=== PATIENT | female | born 1940 | race Caucasian/White ===

== ENCOUNTER 2017-09-20 10:07 | Outpatient (CLI) | END 2017-09-20 10:08 | disposition home or self-care (01) | LOC: LAB 10:07 | PROVIDERS: ATTEND Family Medicine | DX: R42 Dizziness and giddiness (principal) | CPT/HCPCS: 36415; 80053 ==

== ENCOUNTER 2018-03-11 18:17 | Outpatient (CLI) | END 2018-03-11 18:53 | disposition short-term general hospital (02) | LOC: AMBL 18:17 | PROVIDERS: ATTEND Internal Medicine | DX: S09.92XA Unspecified injury of nose, initial encounter (principal); R51 Headache; S51.812A Laceration without foreign body of left forearm, initial encounter; S51.811A Laceration without foreign body of right forearm, initial encounter; R68.89 Other general symptoms and signs; W18.11XA Fall from or off toilet without subsequent striking against object, initial encounter; R40.2411 Glasgow coma scale score 13-15, in the field [EMT or ambulance] ==

== ENCOUNTER 2018-03-17 17:56 | Inpatient (IN) | payer OTHER ==
[2018-03-17 18:29] VITALS: BMI 38.0
[2018-03-17] MEDS ORDERED: HUMALOG SUBCUT SCH (19:00)
[2018-03-17] MEDS ORDERED: FLONASE NAS PRN (19:04)
[2018-03-17] MEDS ORDERED: ZAROXOLYN PO PRN (19:04)
[2018-03-17] MEDS ORDERED: ZOFRAN TAB PO PRN (19:04)
[2018-03-17] MEDS ORDERED: NITROSTAT SL PRN (19:04)
[2018-03-17] MEDS ORDERED: NON-FORMULARY MEDICATION (Ranolazine [Ranexa] 1,000 MG) PO SCH (19:15)
[2018-03-17] MEDS ORDERED: TYLENOL PO PRN (19:15)
[2018-03-17] MEDS: NEURONTIN PO SCH ×2 (21:16→21:18)
[2018-03-17] MEDS: XANAX PO PRN (21:16)
[2018-03-17] MEDS: VITAMIN D PO SCH (21:17)
[2018-03-17] MEDS: HUMULIN N SUBCUT SCH (21:19)
[2018-03-18] MEDS: NORCO 5-325 PO PRN ×3 (00:23→22:57)
[2018-03-18] MEDS: BUMEX PO SCH (05:48)
[2018-03-18] MEDS: PROTONIX PO SCH ×2 (05:48→16:35)
[2018-03-18] MEDS: HUMALOG SUBCUT SCH ×3 (08:20→17:05)
[2018-03-18] MEDS ORDERED: HUMALOG SUBCUT SCH ×2 (08:30)
[2018-03-18] MEDS: PRAVACHOL PO SCH (08:38)
[2018-03-18] MEDS: PLAVIX PO SCH (08:38)
[2018-03-18] MEDS: ASPIRIN EC PO SCH (08:38)
[2018-03-18] MEDS: IMDUR PO SCH (08:39)
[2018-03-18] MEDS: VITAMIN D PO SCH ×2 (08:39→20:26)
[2018-03-18] MEDS: CALCIUM 500 + VIT D 200 MG TABLET PO SCH (08:39)
[2018-03-18] MEDS: RANEXA PO SCH ×2 (08:39→16:35)
[2018-03-18] MEDS: LOVENOX SUBCUT SCH (08:48)
[2018-03-18] MEDS: HUMULIN N SUBCUT SCH ×2 (08:55→16:42)
[2018-03-18] MEDS ORDERED: AVAPRO PO SCH (09:00)
[2018-03-18] MEDS ORDERED: NON-FORMULARY MEDICATION (Metoprolol Succinate [Toprol Xl] 100 MG) PO SCH (09:00)
[2018-03-18] MEDS ORDERED: IRBESARTAN 300 MG PO SCH (09:00)
[2018-03-18] MEDS ORDERED: NON-FORMULARY MEDICATION (Calcium Carbonate [Calcium] 600 MG) PO SCH (09:00)
[2018-03-18] MEDS: TOPROL XL PO SCH (11:21)
--- NOTE | 2018-03-18 15:18 | RS.PTINEVL ---
Subjective - Patient information Date of Evaluation: 03/18/18 Date of Arrival on Unit: 03/17/18 Admitted From:: Home Diagnosis: impaired mobility, s/p fall, hyponatremia Usual Living Arrangement: Alone Living Arrangement Comments: son and dtr in law live close by Home Environment: House, Ramp Medical History: Diabetes, CHF Medical History Comments:: GERD, AAA LATEX ALLERGY?: No Surgical History: Knee Replacement (bilateral), CABG Medications: see chart Subjective Information/ Patient Comments:: pt states that she fell at home trying to get into shower after not feeling well due to stomach issues. Fell braking nose and suffered skin tears to BUE - Level of function Prior to this admission, the patient could do the following:: Independent ADL's , Independent Ambulation Current Level of Function: Partially Dependent Current Equipment Used at Home: walker, cane, oxygen, glucometer Pain Assessement - Location BUE Effects of Pain: pain with pressure to skin tear areas. Interventions - Objective Patient Orientation: Person, Place, Time, Situation Current Interventions: IV's, Oxygen Observation: pt with edema BUE and BLE Range of Motion - ROM Right Upper Extremity AROM: WFL's Left Upper Extremity AROM: WFL's Right Lower Extremity AROM: WFL's Left Lower Extremity AROM: WFL's Muscle Strength - Muscle Strength Right Upper Extremity Strength: Mild Weakness (grossly 4/5) Left Upper Extremity Strength: Mild Weakness (grossly 4/5) Right Lower Extremity Strength: Mild Weakness (hip flex 4-/5, knee flex/ext 4/5 , ankle Df/PF 4/5) Left Lower Extremity Strength: Mild Weakness (hip flex 4-/5, knee flex/ext 4/5, ankle Df/PF 4/5) Sensation - Sensation Right Upper Extremity Sensation: Intact/Normal Left Upper Extremity Sensation: Intact/Normal Right Lower Extremity Sensation: Intact/Normal Left Lower Extremity Sensation: Intact/Normal Balance - Sitting Balance and Reactions Static Sitting Balance: Good Dynamic Sitting Balance: Fair Sitting Equilibrium Reactions: Delayed Left, Delayed Right Sitting Protective Reactions: Delayed Left, Delayed Right - Standing Balance and Reactions Static Standing Balance: Fair Dynamic Standing Balance: Poor Standing Equilibrium Reactions: Delayed Left, Delayed Right Standing Protective Reactions: Delayed Left, Delayed Right - Comments Balance Assessment Comments: pt with 1 episode of LOB required CGA to maintain balance Functional Mobility - Bed Mobility Comments:: pt seen sitting up in chair - Transfers Sit to Stand: Min Assist, 1 person assist Stand to Sit: CGA, 1 person assist - Safety Awareness Safety Awareness: Fair JAX INDEX SCORE: 55 Ambulation - Ambulation Assistive Device Used: Rolling Walker Orthotic/Prosthetic Device: No Distance: 75ft Assistance needed with Ambulation: CGA, 1 person assist, 2 person assist Quality of Ambulation: pt amb with CGA x 1 +1 for O2 Gait Deviations: Forward posture, Short stride, Deviates from path Ambulation Comments: pt amb with decreased step length, flexed posture, and occasionally deviates from path. Factors Affecting Ambulation: Decreased Balance, Breathing/O2 Saturation, Weakness, Decreased Safety, Limited Endurance Treatment time - Units charged Gait trainin - Time with patient Length of Evaluation: 18 Total treatment time: 29 Patient Education - Education Patient Education: Activity Modification, Education of Plan of Care Teaching Recipient: Patient Teaching Methods: Discussion (discussion regarding safety with transfers and gait.) Assessment - Assessment Problem List:: Decreased level of function, Requires training/education, Decreased safety/Risk of falls, Weakness Rehab Potential: Good Further Therapy Indicated?: Yes Candidate for Swing Bed for Therapy Services?: pt is currently in swing bed Evaluation Complexity: HISTORY: Medium (DM, CHF, falls, OA), EXAM OF BODY SYSTEMS: Medium (balance, posture, gait, transfers, SOA), CLINICAL PRESENTATION : Medium (evolving), CLINICAL DECISION MAKING: Medium Short Term Goals GOAL #1: pt demonstrate independence rolling and scooting up in bed Goal to be met by: 03/22/18 GOAL #2: Transfer sup to/from sit CGA sit to/from stand CGA to SBA Goal to be met by: 03/22/18 GOAL #3: pt amb with rwx 100ft with CGA with improved posture, and step length Goal to be met by: 03/22/18 GOAL #4: Improved BLE strength 4 to 4+/5 Goal to be met by: 03/22/18 Senior Ui Developer Goals GOAL #1: pt transfers sup to/from sit to/from stand independently Goal to be met by: 03/25/18 GOAL #2: pt amb with rwx functional household distances with SBA with no LOB Goal to be met by: 03/25/18 GOAL #3: able to perform 5 mins of standing activity without seated rest period Goal to be met by: 08/10/18 Plan Plan of Care: Therapeutic EX, Therapeutic Activity Other:: gait training Frequency of Treatment: 1-2 X day, as tolerated Duration of Treatment: 1 Week Anticipated Discharge Destination: Home Treatment Diagnosis (ICD 10 Codes): R26.81 balance impaired. z91.81 risk of falls. R26.2 difficulty walking. M62.81 general weakness Has the Physician been added for Co-signature?: Yes
[2018-03-18] MEDS: XANAX PO PRN (15:19)
[2018-03-18] MEDS: NEURONTIN PO SCH ×2 (20:25→20:26)
[2018-03-19] MEDS: BUMEX PO SCH (05:46)
[2018-03-19] MEDS: PROTONIX PO SCH ×2 (05:46→16:54)
[2018-03-19] MEDS: IMDUR PO SCH (08:39)
[2018-03-19] MEDS: PLAVIX PO SCH (08:40)
[2018-03-19] MEDS: RANEXA PO SCH ×2 (08:40→16:54)
[2018-03-19] MEDS: VITAMIN D PO SCH ×2 (08:40→20:59)
[2018-03-19] MEDS: TOPROL XL PO SCH (08:40)
[2018-03-19] MEDS: CALCIUM 500 + VIT D 200 MG TABLET PO SCH (08:40)
[2018-03-19] MEDS: PRAVACHOL PO SCH (08:41)
[2018-03-19] MEDS: ASPIRIN EC PO SCH (08:41)
[2018-03-19] MEDS: LOVENOX SUBCUT SCH (08:43)
[2018-03-19] MEDS: HUMULIN N SUBCUT SCH ×2 (08:45→16:54)
[2018-03-19] MEDS: HUMALOG SUBCUT SCH ×3 (08:47→17:31)
[2018-03-19] MEDS: XANAX PO PRN (15:16)
[2018-03-19] MEDS: NEURONTIN PO SCH ×2 (18:33→20:59)
[2018-03-19] MEDS: AVAPRO PO SCH (20:58)
[2018-03-19] MEDS: NORCO 5-325 PO PRN (22:34)
[2018-03-20] MEDS: BUMEX PO SCH (05:38)
[2018-03-20] MEDS: PROTONIX PO SCH ×2 (05:38→17:02)
[2018-03-20] MEDS: RANEXA PO SCH ×2 (08:38→17:01)
[2018-03-20] MEDS: VITAMIN D PO SCH ×2 (08:38→21:57)
[2018-03-20] MEDS: TOPROL XL PO SCH (08:38)
[2018-03-20] MEDS: CALCIUM 500 + VIT D 200 MG TABLET PO SCH (08:38)
[2018-03-20] MEDS: ASPIRIN EC PO SCH (08:38)
[2018-03-20] MEDS: IMDUR PO SCH (08:38)
[2018-03-20] MEDS: PRAVACHOL PO SCH (08:38)
[2018-03-20] MEDS: PLAVIX PO SCH (08:38)
[2018-03-20] MEDS: LOVENOX SUBCUT SCH (08:39)
[2018-03-20] MEDS: HUMALOG SUBCUT SCH ×3 (08:39→17:36)
[2018-03-20] MEDS: HUMULIN N SUBCUT SCH ×2 (08:42→17:03)
[2018-03-20] MEDS: NEURONTIN PO SCH ×2 (18:30→21:57)
[2018-03-20] MEDS: AVAPRO PO SCH (21:56)
[2018-03-20] MEDS: NORCO 5-325 PO PRN (23:42)
[2018-03-21] MEDS: BUMEX PO SCH (06:03)
[2018-03-21] MEDS: PROTONIX PO SCH ×2 (06:03→18:15)
[2018-03-21] MEDS: ASPIRIN EC PO SCH (09:09)
[2018-03-21] MEDS: IMDUR PO SCH (09:09)
[2018-03-21] MEDS: VITAMIN D PO SCH ×2 (09:10→20:57)
[2018-03-21] MEDS: RANEXA PO SCH ×2 (09:10→18:15)
[2018-03-21] MEDS: PLAVIX PO SCH (09:10)
[2018-03-21] MEDS: CALCIUM 500 + VIT D 200 MG TABLET PO SCH (09:10)
[2018-03-21] MEDS: PRAVACHOL PO SCH (09:10)
[2018-03-21] MEDS: LOVENOX SUBCUT SCH (09:11)
[2018-03-21] MEDS: TOPROL XL PO SCH (09:11)
[2018-03-21] MEDS: HUMULIN N SUBCUT SCH ×2 (09:13→18:15)
[2018-03-21] MEDS: HUMALOG SUBCUT SCH ×3 (09:14→18:17)
--- NOTE | 2018-03-21 10:48 | RS.SLPCNOT ---
Speech Case Note Date of Note: 03/21/18 Title: Speech Consult Note: The MARKETING PRODUCTION SPECIALIST discussed the patient's case with the senior case manager and nursing. Both reported no concerns for speech therapy, however to speak with the patient. The MARKETING PRODUCTION SPECIALIST entered the room and the pt was sitting up right in the chair waiting for PT to arrive. She was pleased to speak with the MARKETING PRODUCTION SPECIALIST due to her concerns with her esophagus. The pt reported she had a hx of a narrow esophagus with GERD. She had her esophagus stretched 1x and this relieved her swallowing difficulty and GERD symptoms. However, she stated, "recently i have been having some trouble with too soft or too hard food. I call it getting hung." The MARKETING PRODUCTION SPECIALIST educated the patient on strategies and exercises that could be completed to address her difficulty. However, the pt stated, " I want to focus on getting home first. Then maybe in a month or so I can get outpatient speech therapy." The MARKETING PRODUCTION SPECIALIST provided continued education on swallow anatomy and physiology and provided strategies. The pt agreed to no speech therapy during her hospital stay.
[2018-03-21] MEDS: NEURONTIN PO SCH ×2 (18:15→20:57)
[2018-03-21] MEDS: XANAX PO PRN (18:15)
[2018-03-21] MEDS: AVAPRO PO SCH (20:57)
[2018-03-21] MEDS: NORCO 5-325 PO PRN (23:58)
[2018-03-22] MEDS: PROTONIX PO SCH ×2 (05:44→17:28)
[2018-03-22] MEDS: BUMEX PO SCH (05:44)
[2018-03-22] MEDS: IMDUR PO SCH (09:45)
[2018-03-22] MEDS: CALCIUM 500 + VIT D 200 MG TABLET PO SCH (09:46)
[2018-03-22] MEDS: PLAVIX PO SCH (09:46)
[2018-03-22] MEDS: PRAVACHOL PO SCH (09:46)
[2018-03-22] MEDS: ASPIRIN EC PO SCH (09:46)
[2018-03-22] MEDS: RANEXA PO SCH ×2 (09:46→17:28)
[2018-03-22] MEDS: VITAMIN D PO SCH ×2 (09:46→20:52)
[2018-03-22] MEDS: HUMULIN N SUBCUT SCH ×2 (09:50→17:28)
[2018-03-22] MEDS: LOVENOX SUBCUT SCH (09:50)
[2018-03-22] MEDS: HUMALOG SUBCUT SCH ×3 (09:51→17:28)
[2018-03-22] MEDS: TOPROL XL PO SCH (10:12)
--- NOTE | 2018-03-22 12:12 | DI ---
EXAM: Right hand three-view HISTORY: Wound right hand with swelling COMPARISON: None FINDINGS: No fracture or dislocation. No cortical destruction identified to suggest osteomyelitis. Mild to moderate scattered osteoarthritic change throughout the hand. Soft tissue swelling about th e first digit. Atherosclerotic vascular calcification. IMPERSSION: 1. No fracture or dislocation. No findings to suggest osteomyelitis. 2. Soft tissue swelling first digit. 3. Osteoarthritis
[2018-03-22] MEDS: CLEOCIN PO SCH ×3 (12:40→20:52)
[2018-03-22] MEDS: NEURONTIN PO SCH ×2 (20:52)
[2018-03-22] MEDS: XANAX PO PRN (20:52)
[2018-03-22] MEDS: AVAPRO PO SCH (20:53)
[2018-03-22] MEDS: NORCO 5-325 PO PRN (22:39)
[2018-03-23] MEDS: CLEOCIN PO SCH ×3 (05:34→20:52)
[2018-03-23] MEDS: PROTONIX PO SCH ×2 (05:34→17:12)
[2018-03-23] MEDS: BUMEX PO SCH (05:34)
[2018-03-23] MEDS: CALCIUM 500 + VIT D 200 MG TABLET PO SCH (09:14)
[2018-03-23] MEDS: PRAVACHOL PO SCH (09:14)
[2018-03-23] MEDS: VITAMIN D PO SCH ×2 (09:14→21:02)
[2018-03-23] MEDS: ASPIRIN EC PO SCH (09:14)
[2018-03-23] MEDS: TOPROL XL PO SCH (09:15)
[2018-03-23] MEDS: RANEXA PO SCH ×2 (09:15→17:12)
[2018-03-23] MEDS: IMDUR PO SCH (09:15)
[2018-03-23] MEDS: PLAVIX PO SCH (09:15)
[2018-03-23] MEDS: HUMULIN N SUBCUT SCH ×2 (09:15→17:13)
[2018-03-23] MEDS: HUMALOG SUBCUT SCH ×3 (09:16→17:14)
[2018-03-23] MEDS: LOVENOX SUBCUT SCH (09:16)
[2018-03-23] MEDS: XANAX PO PRN ×2 (09:52→21:08)
[2018-03-23] MEDS ORDERED: CITRATE OF MAGNESIA PO STA (13:12)
[2018-03-23] MEDS ORDERED: DULCOLAX RC STA (13:12)
[2018-03-23] MEDS: NEURONTIN PO SCH ×2 (18:28→20:52)
[2018-03-23] MEDS: AVAPRO PO SCH (20:53)
[2018-03-23] MEDS ORDERED: VITAMIN D ONE (20:58)
[2018-03-24] MEDS: NORCO 5-325 PO PRN (00:11)
[2018-03-24] MEDS: PROTONIX PO SCH ×2 (05:49→17:10)
[2018-03-24] MEDS: CLEOCIN PO SCH ×2 (06:18→12:47)
[2018-03-24] MEDS: PRAVACHOL PO SCH (09:12)
[2018-03-24] MEDS: IMDUR PO SCH (09:12)
[2018-03-24] MEDS: BUMEX PO SCH ×2 (09:12→09:41)
[2018-03-24] MEDS: ASPIRIN EC PO SCH (09:12)
[2018-03-24] MEDS: PLAVIX PO SCH (09:12)
[2018-03-24] MEDS: TOPROL XL PO SCH (09:12)
[2018-03-24] MEDS: RANEXA PO SCH ×2 (09:12→17:10)
[2018-03-24] MEDS: VITAMIN D PO SCH (09:13)
[2018-03-24] MEDS: HUMULIN N SUBCUT SCH ×2 (09:13→17:11)
[2018-03-24] MEDS: LOVENOX SUBCUT SCH (09:13)
[2018-03-24] MEDS: HUMALOG SUBCUT SCH ×3 (09:14→17:11)
[2018-03-24] MEDS: CALCIUM 500 + VIT D 200 MG TABLET PO SCH (09:14)
--- NOTE | 2018-03-24 13:41 | RS.OTINEVL ---
Subjective - Patient information Date of Evaluation: 03/24/18 Date of Arrival on Unit: 03/16/18 Admitted From:: Facility Transfer Usual Living Arrangement: Alone Living Arrangement Comments: Pt lives at home alone. Pt reports she has help from her son and [id number]. Pt has a cat and was independent with dressing , bathing, showering, and has a ramp to enter her home. Pt used a RW at home before her fall. Pt was completing most of her house work herself. Home Environment: House, Rail, Ramp Medical History Comments:: Pt is upset because she has staph in her hand from the skin tear. Pt fell and has skin tears and a broken nose. Pt has difficulty standing and is now wearing oxygen during the day. AAA. CABG, hysterectomy, former smoker, DMII, LATEX ALLERGY?: No - Level of function Prior to this admission, the patient could do the following:: Independent ADL's , Independent Ambulation Current Equipment Used at Home: walker, cane, oxygen, glucometer Pain Assessment - Pain Side: right Pain Location Body Site: Hand Pain Aggravating Factors: ADL's Pain Alleviating Factors: Position Change (Pt has RUE elevated due to pain and edema of the Right hand.) Functional Mobility - Bed Mobility Rolling R/L: Supervision Scooting: Supervision Supine to Sit: Supervision Sit to Supine: Supervision - Transfers Stand to Sit: Min Assist, 1 person assist Stand Pivot Transfers: Min Assist, 1 person assist - Ambulation Assistive Device Used: Rolling Walker Assistance needed with Ambulation: Min Assist, 1 person assist - Safety Awareness Safety Awareness: Fair JAX INDEX SCORE: 65 Additional Treatment Performed - Additional units charged ADL: 15 - Time with patient Length of Evaluation: 17 Total treatment time: 32 Activities Do you enjoy playing games?: Yes Would you be interested in leaving your room for activities?: Yes Patient Interests:: Watching Television, Visiting/Socializing Patient Education Patient Education: Education of diagnosis, Home Exercise Program, Home Safety, Education of Plan of Care Teaching Recipient: Patient Teaching Methods: Discussion Assessment Problem List:: Decreased level of function, Requires training/education, Decreased safety/Risk of falls, Weakness Rehab Potential: Good Further Therapy Indicated?: Yes Candidate for Swing Bed for Therapy Services?: yes Evaluation Complexity: HISTORY: Medium, EXAM OF BODY SYSTEMS: Medium, CLINICAL DECISION MAKING: Medium Short Term Goals - Goals GOAL 1: Pt to tolerate 15 minutes of dyn. std. balance ADLS. Goal to be met by: 03/29/18 GOAL 2: Pt to increase functional mobility to CGA for self care. Goal to be met by: 03/29/18 GOAL 3: Pt to increase activity tolerance to 12 minutes. Goal to be met by: 03/29/18 Technical Support Representative Goals GOAL 1: Pt to tolerate 20 minutes of dyn. std. balance ADLS. Goal to be met by: 04/01/18 GOAL 2: Pt to increase functional mobility to Mod-I for self care. Goal to be met by: 04/01/18 GOAL 3: Pt to increase activity tolerance to 15 minutes. Goal to be met by: 04/01/18 Plan Plan of Care: Therapeutic EX, Neuromuscular Re-Educ, Therapeutic Activity, Self- Care/Home Management Frequency of Treatment: 1-2 X day, as tolerated Duration of Treatment: 2 Weeks Anticipated Discharge Destination: Home Treatment Diagnosis (ICD 10 Codes): M62.81 muscle weakness, Z74.0 Reduced mobility, Z74.1 need for assistance for personal care. Has the Physician been added for Co-signature?: Yes
[2018-03-24] MEDS: DOXYCYCLINE HYCLATE PO SCH (15:42)
[2018-03-24] MEDS: XANAX PO PRN (15:56)
[2018-03-24] MEDS: NEURONTIN PO SCH (18:46)
[2018-03-24] MEDS ORDERED: BUMEX ONE ×2 (22:00→23:19)
[2018-03-24] MEDS ORDERED: XANAX ONE (23:18)
[2018-03-25] MEDS: AVAPRO PO SCH ×2 (05:26→20:25)
[2018-03-25] MEDS: DOXYCYCLINE HYCLATE PO SCH ×3 (05:26→20:25)
[2018-03-25] MEDS: NEURONTIN PO SCH ×3 (05:26→20:25)
[2018-03-25] MEDS: VITAMIN D PO SCH ×3 (05:27→20:25)
[2018-03-25] MEDS: VITAMIN C PO SCH ×3 (05:27→20:25)
[2018-03-25] MEDS: PROTONIX PO SCH ×2 (05:40→17:22)
[2018-03-25] MEDS: BUMEX PO SCH (05:40)
--- NOTE | 2018-03-25 08:57 | DI ---
EXAM: Single view of the chest. History: Short of breath Findings: Cardiomegaly. Atherosclerotic vascular calcifications. Sternotomy wires. Artificial hea rt valve. Pulmonary edema and small bilateral pleural effusions. No pneumothorax. No acute osseous abnormalities. Impression: Cardiomegaly with pulmonary edema and small bilateral pleural effusions.
[2018-03-25] MEDS: LOVENOX SUBCUT SCH (09:13)
[2018-03-25] MEDS: HUMALOG SUBCUT SCH ×3 (09:15→17:23)
[2018-03-25] MEDS: HUMULIN N SUBCUT SCH ×2 (09:15→17:22)
[2018-03-25] MEDS: TOPROL XL PO SCH (09:16)
[2018-03-25] MEDS: PRAVACHOL PO SCH (09:16)
[2018-03-25] MEDS: ASPIRIN EC PO SCH (09:17)
[2018-03-25] MEDS: PLAVIX PO SCH (09:17)
[2018-03-25] MEDS: CALCIUM 500 + VIT D 200 MG TABLET PO SCH (09:17)
[2018-03-25] MEDS: IMDUR PO SCH (09:17)
[2018-03-25] MEDS: RANEXA PO SCH ×2 (09:18→17:22)
[2018-03-25] MEDS ORDERED: BUMEX IVP STA (10:25)
[2018-03-25] MEDS ORDERED: SOLU-CORTEF 100 MG IVP STA (10:26)
[2018-03-25] MEDS: XANAX PO PRN ×2 (13:00→19:28)
--- NOTE | 2018-03-25 14:59 | ECHO2D ---
Date of Exam: 03/25/18 Ordering Physician: DR. TAYLOR DELGADO Room #: [id number] Reason for Echo: CHF, CABG M-Mode Normal Adult Results LV Dimensions Normal Adult Results AoV Opening excursions >1.6 >1.6 LVEDD-base- 3.5-5.8 6.2 Ao root dimensions 2.0-3.7 3.0 LVESD-base- 3.1-4.6 L. Atrium dimensions 1.9-3.8 4.6 Post. Wall thickness 0.8-1.1 1.1 IV septum (thickness) 0.7-1.2 1.1 Post. Wall excursion 0.72-1.3 0.3 Septal motion 0.3 Systolic motion R. Ventricular cavity 1.5-2.0 3.0 LVEF 60% 22% Paradoxical septal wall motion NORMAL 2-D : HYPOKINETIC LEFT VENTRICLE, ENLARGED LEFT ATRIAL, RIGHT VENTRICLE AND LEFT VENTRICLE CAVITIES, NO EFFUSION, NO THROMBUS, NORMAL VALVES M-MODE: MV: NORMAL AV: NORMAL TV: NORMAL PV: CHAMBER SIZE: ENLARGED LEFT ATRIAL, LEFT VENTRICLE AND RIGHT VENTRICLE CAVITIES WALL MOTION: HYPOKINETIC LEFT VENTRICLE PERICARDIUM: NORMAL INTERPRETATION: 1. ENLARGED RIGHT VENTRICLE, LEFT ATRIAL AND LEFT VENTRICLE CAVITIES 2. SEVERE HYPOKINESIA OF LEFT VENTRICLE WITH EJECTION FRACTION 22% 3. NORMAL VALVES BY "M" MODE AND 2 "D" ECHO SEVERE DILATED CARDIOMYOPATHY MTDD
[2018-03-25] MEDS: MULTIVITAMIN TABLET PO SCH (17:20)
[2018-03-25] MEDS: NORCO 5-325 PO PRN (19:28)
[2018-03-26] MEDS: NORCO 5-325 PO PRN ×2 (01:38→20:33)
[2018-03-26] MEDS: BUMEX PO SCH (05:31)
[2018-03-26] MEDS: PROTONIX PO SCH ×2 (05:32→16:34)
[2018-03-26] MEDS: DOXYCYCLINE HYCLATE PO SCH ×2 (09:13→20:33)
[2018-03-26] MEDS: CALCIUM 500 + VIT D 200 MG TABLET PO SCH (09:13)
[2018-03-26] MEDS: MULTIVITAMIN TABLET PO SCH (09:13)
[2018-03-26] MEDS: TOPROL XL PO SCH (09:13)
[2018-03-26] MEDS: PRAVACHOL PO SCH (09:13)
[2018-03-26] MEDS: ASPIRIN EC PO SCH (09:13)
[2018-03-26] MEDS: PLAVIX PO SCH (09:14)
[2018-03-26] MEDS: VITAMIN D PO SCH ×2 (09:14→20:35)
[2018-03-26] MEDS: RANEXA PO SCH ×2 (09:14→16:34)
[2018-03-26] MEDS: VITAMIN C PO SCH ×2 (09:14→20:33)
[2018-03-26] MEDS: IMDUR PO SCH (09:14)
[2018-03-26] MEDS: LOVENOX SUBCUT SCH (09:15)
[2018-03-26] MEDS ORDERED: BUMEX IVP STA (09:27)
[2018-03-26] MEDS: HUMULIN N SUBCUT SCH ×2 (09:35→17:42)
[2018-03-26] MEDS: HUMALOG SUBCUT SCH ×3 (12:05→16:44)
[2018-03-26] MEDS: XANAX PO PRN (16:34)
[2018-03-26] MEDS: NEURONTIN PO SCH ×2 (18:27→20:33)
[2018-03-26] MEDS: AVAPRO PO SCH (20:33)
[2018-03-27] MEDS: XANAX PO PRN ×3 (00:19→21:16)
[2018-03-27] MEDS ORDERED: BUMEX IVP STA ×2 (04:37→04:42)
[2018-03-27] MEDS ORDERED: BUMEX ONE (04:40)
[2018-03-27] MEDS: BUMEX PO SCH (06:04)
[2018-03-27] MEDS: PROTONIX PO SCH ×2 (06:05→17:05)
[2018-03-27] MEDS: TOPROL XL PO SCH (09:24)
[2018-03-27] MEDS: MULTIVITAMIN TABLET PO SCH (09:24)
[2018-03-27] MEDS: IMDUR PO SCH (09:24)
[2018-03-27] MEDS: VITAMIN D PO SCH ×2 (09:25→20:25)
[2018-03-27] MEDS: RANEXA PO SCH ×2 (09:25→17:05)
[2018-03-27] MEDS: ASPIRIN EC PO SCH (09:25)
[2018-03-27] MEDS: DOXYCYCLINE HYCLATE PO SCH ×2 (09:25→20:25)
[2018-03-27] MEDS: PLAVIX PO SCH (09:25)
[2018-03-27] MEDS: PRAVACHOL PO SCH (09:25)
[2018-03-27] MEDS: VITAMIN C PO SCH ×2 (09:25→20:25)
[2018-03-27] MEDS: CALCIUM 500 + VIT D 200 MG TABLET PO SCH (09:26)
[2018-03-27] MEDS: HUMULIN N SUBCUT SCH ×2 (09:26→17:04)
[2018-03-27] MEDS: LOVENOX SUBCUT SCH (09:27)
[2018-03-27] MEDS: HUMALOG SUBCUT SCH ×3 (09:30→16:34)
[2018-03-27] MEDS ORDERED: SOLU-CORTEF 100 MG ONE (13:19)
[2018-03-27] MEDS: NORCO 5-325 PO PRN ×2 (13:28→21:16)
[2018-03-27] MEDS ORDERED: SOLU-CORTEF 100 MG 100 MG in SODIUM CHLORIDE 100 ML IV SCH (13:30)
[2018-03-27] MEDS: NEURONTIN PO SCH ×2 (18:44→20:25)
[2018-03-27] MEDS: AVAPRO PO SCH (20:27)
[2018-03-27] MEDS ORDERED: HUMULIN R SUBCUT ONE (22:00)
[2018-03-28] MEDS: PROTONIX PO SCH ×2 (05:53→17:05)
[2018-03-28] MEDS: BUMEX PO SCH (05:53)
[2018-03-28] MEDS: HUMULIN N SUBCUT SCH ×2 (08:47→17:08)
[2018-03-28] MEDS: LOVENOX SUBCUT SCH (08:47)
[2018-03-28] MEDS: HUMALOG SUBCUT SCH ×3 (08:48→17:07)
[2018-03-28] MEDS: PLAVIX PO SCH (08:48)
[2018-03-28] MEDS: RANEXA PO SCH ×2 (08:48→17:05)
[2018-03-28] MEDS: DOXYCYCLINE HYCLATE PO SCH ×2 (08:49→20:14)
[2018-03-28] MEDS: MULTIVITAMIN TABLET PO SCH (08:49)
[2018-03-28] MEDS: VITAMIN C PO SCH ×2 (08:49→20:14)
[2018-03-28] MEDS: CALCIUM 500 + VIT D 200 MG TABLET PO SCH (08:49)
[2018-03-28] MEDS: ASPIRIN EC PO SCH (08:49)
[2018-03-28] MEDS: PRAVACHOL PO SCH (08:49)
[2018-03-28] MEDS: IMDUR PO SCH (08:50)
[2018-03-28] MEDS: SOLU-CORTEF 100 MG IVP SCH (08:50)
[2018-03-28] MEDS: VITAMIN D PO SCH ×2 (08:50→20:13)
[2018-03-28] MEDS: TOPROL XL PO SCH (08:50)
--- NOTE | 2018-03-28 09:46 | CONS ---
DATE OF CONSULTATION: 03/25/18 REASON FOR CONSULTATION: Respiratory distress. HISTORY OF PRESENT ILLNESS: 77-year-old white female was hospitalized in swing bed for the past couple of weeks. Either early this morning or last night the patient's condition worsened and she went into what looks like pulmonary edema. The patient was given Lasix. Her condition improved to some extent but she is still short of breath on minimal exertion with mild expiratory wheeze. The ABG done this morning on 3L, p02 71, pc02 32, pH 7.49 with 96% saturation. The patient has multiple medical problems. Her main problem is ischemic cardiomyopathy, severe coronary artery disease, end-stage. She is on multiple medications. REVIEW OF SYSTEMS: CONSTITUTIONAL: No night sweats. No fatigue, malaise, lethargy. No fever or chills. HEENT: Eyes: No visual changes. No eye pain. No eye discharge. ENT: No sinus drainage. No epistaxis. No sinus pain. No sore throat. No odynophagia. No ear pain. No congestion. RESPIRATORY: No cough, no congestion. No hemoptysis. No shortness of breath. CARDIOVASCULAR: No angina symptoms. No CHF symptoms. No atypical chest pain for CAD. No palpitations. No orthopnea. GASTROINTESTINAL: No abdominal pain. No nausea or vomiting. No diarrhea or constipation. No hematemesis. No hematochezia. GENITOURINARY: No urgency. No frequency. No dysuria. No hematuria. No obstructive symptoms. No discharge. No pain. No significant abnormal bleeding. MUSCULOSKELETAL: No musculoskeletal pain. No joint swelling. NEUROLOGICAL: No headache. No neck pain. No syncope. No seizures. No dizziness. PSYCHIATRIC: Not anxious. No depression. No suicidal thoughts. No homicidal thoughts. SKIN: No rash. No lesions. No wounds. ENDOCRINE: No unexplained weight loss. No weight gain. HEMATOLOGIC/LYMPHATIC: No anemia. No purpura. No petechiae. No prolonged or excessive bleeding. No palpable lymph nodes. MEDICATIONS: Xanax Aspirin Beclomethasone inhaler Bumex Clopidogrel Gabapentin Insulin Isosorbide Metolazone NPH insulin Pravastatin Ranexa Tramadol ALLERGIES: AMOXICILLIN, ATORVASTATIN, CLAVULANIC ACID, LISINOPRIL, FELDENE, PREDNISONE, ROSUVASTATIN, SIMVASTATIN PAST MEDICAL HISTORY: Chronic hyponatremia Weakness Renal insufficiency Congestive heart failure Coronary artery disease Obesity PAST SURGICAL HISTORY: CABG Hysterectomy SOCIAL/PERSONAL/FAMILY HISTORY: The patient is . She is taken care of by the kids. Nonsmoker. No alcohol abuse. BMI 38. PHYSICAL EXAMINATION: GENERAL: The patient is oriented to time, place and person in mild distress. VITAL SIGNS: Respiratory rate 22/min, BP 120/60, pulse ox 92% on 3L, pulse 100/ min, temperature 97.5. HEENT: Head normocephalic, atraumatic. Eyes: Extraocular muscles are intact. Pupils are equal, round and reactive to light and accommodation. Ears: No lesions. Nose appeared normal. Throat: No exudate or erythema. NECK: Supple. JVP 2 cm. No carotid bruit. No lymphadenopathy or thyromegaly. LUNGS: Decreased breath sounds with mild expiratory wheeze with few crepitations at the bases. Percussion note normal. Chest symmetrical. HEART: S1, S2. Questionable S3. No murmurs. No cyanosis or clubbing. No ascites. Pulses: Dorsalis pedis and posterior tibial pulses +1 to +2 both sides. ABDOMEN: Protuberant. Soft. Nontender. Bowel sounds active. No CVA tenderness. No mass felt. EXTREMITIES: No edema. Full range of motion of all extremities, equal. NEUROLOGIC: No focal deficit. Cranial nerves II through XII are grossly intact. No headache, no double vision or headache. SKIN: Not dry. Intact. Turgor - normal. LYMPHATIC: No palpable lymph nodes/no lymphedema. MUSCULOSKELETAL: Normal joints with no swelling. Muscle tone is normal. LABS/EKG/ECHOCARDIOGRAM: Hemoglobin 9.4, hematocrit 30, WBC 12,000, normal differential. Creatiine 1.4, BUN 29, potassium 4.2, glucose 154. EKG sinus rhythm with acute changes seen - done earlier in the hospital stay. Echocardiogram done this morning showed enlarged left atrial, right ventricular , left ventricular cavity with ejection fraction 22%. ASSESSMENT: 1. SEVERE DILATED CARDIOMYOPATHY WITH CONGESTIVE HEART FAILURE 2. HISTORY OF CORONARY ARTERY DISEASE 3. CHRONIC LUNG DISEASE 4. OBESITY 5. DIABETES MELLITUS 6. HISTORY OF DYSLIPIDEMIA RECOMMENDATIONS: 1. The patient has poor prognosis, discussed with attending. 2. The patient is DNR discussed with family about the prognosis. 3. Will give IV Bumex 1 mg. The patient was already given a couple doses of diuretic this morning. 4. Daily CBC, CMP. 5. Will monitor sodium level, creatinine and BUN. 6. 100 mg IV Solu-Cortef given for wheezing and bronchospasm. 7. Oxygen 3L. 8. Telemetry. PROGNOSIS: Poor Thanks for the referral, will follow. CHRISTA
[2018-03-28] MEDS: K-DUR PO SCH ×2 (12:39→17:05)
[2018-03-28] MEDS: NORCO 5-325 PO PRN ×2 (17:13→23:04)
[2018-03-28] MEDS: XANAX PO PRN ×2 (17:13→20:14)
[2018-03-28] MEDS: NEURONTIN PO SCH ×2 (18:32→20:13)
[2018-03-28] MEDS: AVAPRO PO SCH (20:15)
[2018-03-29] MEDS: PROTONIX PO SCH ×2 (05:33→17:05)
[2018-03-29] MEDS: BUMEX PO SCH (05:33)
[2018-03-29] MEDS ORDERED: DECADRON 4 MG/ML SDV IM STA (08:07)
[2018-03-29] MEDS ORDERED: BUMEX IM STA (08:09)
[2018-03-29] MEDS: IMDUR PO SCH (08:50)
[2018-03-29] MEDS: MULTIVITAMIN TABLET PO SCH (08:50)
[2018-03-29] MEDS: DOXYCYCLINE HYCLATE PO SCH ×2 (08:50→20:13)
[2018-03-29] MEDS: K-DUR PO SCH ×2 (08:50→17:05)
[2018-03-29] MEDS: TOPROL XL PO SCH (08:50)
[2018-03-29] MEDS: CALCIUM 500 + VIT D 200 MG TABLET PO SCH (08:50)
[2018-03-29] MEDS: RANEXA PO SCH ×2 (08:51→17:05)
[2018-03-29] MEDS: VITAMIN C PO SCH ×2 (08:51→20:13)
[2018-03-29] MEDS: PRAVACHOL PO SCH (08:51)
[2018-03-29] MEDS: VITAMIN D PO SCH ×2 (08:51→20:14)
[2018-03-29] MEDS: ASPIRIN EC PO SCH (08:51)
[2018-03-29] MEDS: LOVENOX SUBCUT SCH (08:54)
[2018-03-29] MEDS: PLAVIX PO SCH (08:54)
[2018-03-29] MEDS: HUMULIN N SUBCUT SCH ×2 (08:59→17:09)
[2018-03-29] MEDS ORDERED: ALDACTONE PO SCH (09:00)
[2018-03-29] MEDS: HUMALOG SUBCUT SCH ×3 (09:07→17:07)
--- NOTE | 2018-03-29 09:12 | PCM.CONS ---
CONSULTING PROVIDER: Dr. BRUCE ABRAMS ATTENDING PROVIDER: Dr. TAYLOR DELGADO DATE OF SERVICE: 03/29/18 SUBJECTIVE: This 78 year old WHITE/ F was hospitalized 03/17/18. The patient has been seen on consult for CHF. The patient seems to be in mild distress this a.m. She has end-stage CHF with ejection fraction of 20% requiring unloading agents, IV diuretic therapy. Electrolytes are stable with borderline hypokalemia. BUN is slightly up with aggressive diuretic therapy. REVIEW OF SYSTEMS: CONSTITUTIONAL: No night sweats. No fatigue, malaise, lethargy. No fever or chills. HEENT: Eyes: No visual changes. No eye pain. No eye discharge. ENT: No runny nose. No epistaxis. No sinus pain. No odynophagia. No congestion. RESPIRATORY: No cough, no congestion. No hemoptysis. No shortness of breath. CARDIOVASCULAR: No angina symptoms. No CHF symptoms. No atypical chest pain for CAD. No palpitations. No orthopnea. GASTROINTESTINAL: No abdominal pain. No nausea or vomiting. No diarrhea or constipation. No hematemesis. No hematochezia. GENITOURINARY: No urgency. No frequency. No dysuria. No hematuria. No obstructive symptoms. No discharge. No pain. No significant abnormal bleeding. MUSCULOSKELETAL: No musculoskeletal pain; no joint swelling. NEUROLOGICAL: Awake, alert, oriented to time, place and person. No headache. No neck pain. No syncope. No seizures. No dizziness. PSYCHIATRIC: Not anxious. No depression. No suicidal thoughts. No homicidal thoughts. SKIN: No rash. No lesions. No wounds. ENDOCRINE: No unexplained weight loss. No weight gain. HEMATOLOGIC/LYMPHATIC: No anemia. No purpura. No petechiae. No prolonged or excessive bleeding. No palpable lymph nodes. PHYSICAL EXAMINATION: GENERAL: The patient is awake, alert and oriented, sitting in bed in mild distress. VITAL SIGNS: Temperature 97.6 F, Pulse 78, Respiratory Rate 20, BP 145/77, Pulse Ox 97% HEENT: Head normocephalic, atraumatic. Eyes: Extraocular muscles are intact. Pupils are equal, round and reactive to light and accommodation. Ears: No lesions. Nose appeared normal. Throat: No exudate or erythema. NECK: Supple. No JVD, no carotid bruit. No lymphadenopathy or thyromegaly. LUNGS: Decreased breath sounds with mild wheeze. Percussion note normal. Chest symmetrical. HEART: S1, S2, no S3. No murmurs. No cyanosis or clubbing. No ascites. Pulses: Dorsalis pedis and posterior tibial pulses +1 to +2 both sides. ABDOMEN: Soft. Non-tender. Bowel sounds active. No CVA tenderness. No mass felt. EXTREMITIES: No edema. Full range of motion of all extremities, equal. NEUROLOGIC: No focal deficit. Cranial nerves II through XII are grossly intact. No headache, no double vision or headache. SKIN: Warm and dry. Intact. Turgor-normal. LYMPHATIC: No palpable lymph nodes/no lymphedema. MUSCULOSKELETAL: Normal joints with no swelling. Muscle tone is normal. LAB REVIEW: 03/28/18 04:30 03/28/18 04:30 ASSESSMENT: 1. CHF, MILD RESPIRATORY DISTRESS 2. CORONARY ARTERY DISEASE 3. CHRONIC LUNG DISEASE 4. DILATED CARDIOMYOPATHY WITH POOR EJECTION FRACTION 5. DYSLIPIDEMIA 6. DIABETES MELLITUS 7. CHRONIC KIDNEY DISEASE RECOMMENDATIONS/PLAN: 1. Will give Decadron 2 cc IM as IV site has been difficult to get. 2. Will add Aldactone 25 mg twice a day 3. Bumex 1 mg IM Plan and coordination of the patient's care discussed in the presence of Bookkeepers Supervisor and Nurse. CONDITION: Stable SCRIBED BY: GISELLE JOSHI Room Service Manager scribed while in presence of service performed by Dr. BRUCE ABRAMS on 03/29/18 ([id number])
--- NOTE | 2018-03-29 11:05 | CONS ---
DATE OF SERVICE: 03/27/18 CONSULT FOLLOWUP SUBJECTIVE: 78-year-old white female hospitalized in the swing bed for impaired gait, immobility. The patient is doing well as far as that part is concerned but she had a setback with congestive heart failure two days ago. The patient doesn't have any symptoms of CHF at rest. She is able to talk sentences without stopping. PHYSICAL EXAMINATION: VITAL SIGNS: Temperature 97.6, pulse 75, respiratory rate 12, BP 122/70, pulse ox 98%. HEENT: Head normocephalic, atraumatic. Eyes: Extraocular muscles are intact. Pupils are equal, round and reactive to light and accommodation. Ears: No lesions. Nose appeared normal. Throat: No exudate or erythema. NECK: Supple. No JVD, no carotid bruit. No lymphadenopathy or thyromegaly. LUNGS: More breath sounds with few crepitations at the base. Percussion note normal. Chest symmetrical. HEART: S1, S2, no S3. No murmurs. No cyanosis or clubbing. No ascites. Pulses: Dorsalis pedis and posterior tibial pulses +1 to +2 both sides. ABDOMEN: Soft. No ascites. Nontender. Bowel sounds active. No CVA tenderness. No mass felt. EXTREMITIES: No edema. Full range of motion of all extremities, equal. NEUROLOGIC: No focal deficit. Cranial nerves II through XII are grossly intact. No headache, no double vision or headache. SKIN: Not dry. Intact. Turgor - normal. LYMPHATIC: No palpable lymph nodes/no lymphedema. MUSCULOSKELETAL: Normal joints with no swelling. Muscle tone is normal. LABS: Hemoglobin 8.7, hematocrit 26, WBC 9,600, normal differential. Creatinine 1.3, BUN 34, potassium 3.7. ASSESSMENT: 1. CHF, STAGE 3/4 2. CHRONIC LUNG DISEASE 3. ANEMIA 4. CHRONIC KIDNEY DISEASE 5. DYSLIPIDEMIA 6. GENERALIZED DJD RECOMMENDATIONS: 1. Continue IV Bumex 2. Will watch creatinine, BUN, potassium and sodium. All electrolytes seems to be doing well. 3. Continue Aldactone. 4. Give IV Solu-Cortef. CONDITION: Seems to have improved. PROGNOSIS: Guarded. MTDD
--- NOTE | 2018-03-29 11:10 | CONS ---
DATE OF SERVICE: 03/28/18 CONSULT FOLLOWUP SUBJECTIVE: The patient is feeling better. She is talking without stopping. She is quite talkative. REVIEW OF SYSTEMS: CONSTITUTIONAL: No night sweats. No fatigue, malaise, lethargy. No fever or chills. HEENT: Eyes: No visual changes. No eye pain. No eye discharge. ENT: No runny nose. No epistaxis. No sinus pain. No sore throat. No odynophagia. No ear pain. No congestion. RESPIRATORY: No cough, no congestion. No hemoptysis. CARDIOVASCULAR: Shortness of breath on minimal exertion. No angina symptoms. No CHF symptoms. No atypical chest pain for CAD. No palpitations. No PND, no orthopnea. GASTROINTESTINAL: Appetite has improved. No abdominal pain. No nausea or vomiting. No diarrhea or constipation. No hematemesis. No hematochezia. GENITOURINARY: No urgency. No frequency. No dysuria. No hematuria. No obstructive symptoms. No discharge. No pain. No significant abnormal bleeding. MUSCULOSKELETAL: No musculoskeletal pain. No joint swelling. No arthritis. NEUROLOGICAL: No headache. No neck pain. No syncope. No seizures. No dizziness. PSYCHIATRIC: Not anxious. No depression. No suicidal thoughts. No homicidal thoughts. SKIN: No rash. No lesions. No wounds. ENDOCRINE: No unexplained weight loss. No weight gain. HEMATOLOGIC/LYMPHATIC: No anemia. No purpura. No petechiae. No prolonged or excessive bleeding. No palpable lymph nodes. PHYSICAL EXAMINATION: GENERAL: The patient is oriented to time, place and person. HEENT: Head normocephalic, atraumatic. Eyes: Extraocular muscles are intact. Pupils are equal, round and reactive to light and accommodation. Ears: No lesions. Nose appeared normal. Throat: No exudate or erythema. NECK: Supple. No JVD, no carotid bruit. No lymphadenopathy or thyromegaly. LUNGS: Decreased breath sounds with few crepitations. Percussion note normal. Chest symmetrical. HEART: S1, S2, no S3. No murmurs. No cyanosis or clubbing. No ascites. Pulses: Dorsalis pedis and posterior tibial pulses +1 to +2 both sides. ABDOMEN: Soft. Nontender. Bowel sounds active. No CVA tenderness. No mass felt. EXTREMITIES: Trace edema. Full range of motion of all extremities, equal. NEUROLOGIC: No focal deficit. Cranial nerves II through XII are grossly intact. No headache, no double vision or headache. SKIN: Not dry. Intact. Turgor - normal. LYMPHATIC: No palpable lymph nodes/no lymphedema. MUSCULOSKELETAL: Normal joints with no swelling. Muscle tone is normal. ASSESSMENT: 1. CHF SEEMS TO BE UNDER CONTROL, STAGE 3 2. CORONARY ARTERY DISEASE 3. DILATED CARDIOMYOPATHY WITH LOW EJECTION FRACTION 4. DYSLIPIDEMIA 5. DIABETES MELLITUS 6. CHRONIC KIDNEY DISEASE PLAN: 1. Continue IV Bumex 2. Continue unloading agents like Avapro, Sorbitrate, IV steroids for chronic lung disease. 3. Continue inhalers CONDITION: Stabilizing MTDD
[2018-03-29] MEDS: XANAX PO PRN (20:13)
[2018-03-29] MEDS: NEURONTIN PO SCH ×2 (20:13→20:21)
[2018-03-29] MEDS: AVAPRO PO SCH (20:15)
[2018-03-29] MEDS: ALDACTONE PO SCH (20:15)
[2018-03-29] MEDS: NORCO 5-325 PO PRN (20:16)
[2018-03-30] MEDS: XANAX PO PRN ×2 (05:20→18:04)
[2018-03-30] MEDS: BUMEX PO SCH (05:36)
[2018-03-30] MEDS: PROTONIX PO SCH ×2 (05:37→17:58)
[2018-03-30] MEDS: HUMALOG SUBCUT SCH ×3 (09:34→17:56)
[2018-03-30] MEDS: ASPIRIN EC PO SCH (09:40)
[2018-03-30] MEDS: K-DUR PO SCH (09:41)
[2018-03-30] MEDS: ALDACTONE PO SCH ×2 (09:41→22:01)
[2018-03-30] MEDS: TOPROL XL PO SCH (09:41)
[2018-03-30] MEDS: DOXYCYCLINE HYCLATE PO SCH ×2 (09:43→22:01)
[2018-03-30] MEDS: IMDUR PO SCH (09:43)
[2018-03-30] MEDS: CALCIUM 500 + VIT D 200 MG TABLET PO SCH (09:43)
[2018-03-30] MEDS: MULTIVITAMIN TABLET PO SCH (09:44)
[2018-03-30] MEDS: RANEXA PO SCH ×2 (09:45→17:58)
[2018-03-30] MEDS: PRAVACHOL PO SCH (09:45)
[2018-03-30] MEDS: VITAMIN C PO SCH ×2 (09:45→22:02)
[2018-03-30] MEDS: VITAMIN D PO SCH ×2 (09:46→22:05)
[2018-03-30] MEDS: LOVENOX SUBCUT SCH (09:46)
[2018-03-30] MEDS: PLAVIX PO SCH (09:46)
[2018-03-30] MEDS: HUMULIN N SUBCUT SCH ×2 (09:48→17:57)
[2018-03-30] MEDS: SOLU-CORTEF 100 MG IVP SCH (09:50)
[2018-03-30] MEDS ORDERED: K-DUR PO SCH (17:30)
[2018-03-30] MEDS: MICRO-K CAP PO SCH (17:58)
[2018-03-30] MEDS: NORCO 5-325 PO PRN (18:04)
[2018-03-30] MEDS: NEURONTIN PO SCH ×2 (21:59)
[2018-03-30] MEDS: AVAPRO PO SCH (21:59)
[2018-03-31] MEDS: BUMEX PO SCH (06:27)
[2018-03-31] MEDS: PROTONIX PO SCH ×2 (06:27→16:58)
--- NOTE | 2018-03-31 07:24 | CONS ---
DATE OF SERVICE: 03/30/18 CONSULT FOLLOWUP SUBJECTIVE: The patient was seen and examined with the Nurse Practitioner. The patient's condition has improved and she is feeling a lot better. Her leg swelling is much down. She is Aldactone and Bumex. REVIEW OF SYSTEMS: CONSTITUTIONAL: No night sweats. No fatigue, malaise, lethargy. No fever or chills. HEENT: Eyes: No visual changes. No eye pain. No eye discharge. ENT: No runny nose. No epistaxis. No sinus pain. No sore throat. No odynophagia. No ear pain. No congestion. RESPIRATORY: No cough, no congestion. No hemoptysis. CARDIOVASCULAR: No angina symptoms. No CHF symptoms. No atypical chest pain for CAD. No palpitations. No shortness of breath. GASTROINTESTINAL: No abdominal pain. No nausea or vomiting. No diarrhea or constipation. No hematemesis. No hematochezia. GENITOURINARY: No urgency. No frequency. No dysuria. No hematuria. No obstructive symptoms. No discharge. No pain. No significant abnormal bleeding. MUSCULOSKELETAL: No musculoskeletal pain. No joint swelling. No arthritis. NEUROLOGICAL: No headache. No neck pain. No syncope. No seizures. No dizziness. PSYCHIATRIC: Not anxious. No depression. No suicidal thoughts. No homicidal thoughts. SKIN: No rash. No lesions. No wounds. ENDOCRINE: No unexplained weight loss. No weight gain. HEMATOLOGIC/LYMPHATIC: No anemia. No purpura. No petechiae. No prolonged or excessive bleeding. No palpable lymph nodes. PHYSICAL EXAMINATION: HEENT: Head normocephalic, atraumatic. Eyes: Extraocular muscles are intact. Pupils are equal, round and reactive to light and accommodation. Ears: No lesions. Nose appeared normal. Throat: No exudate or erythema. NECK: Supple. No JVD, no carotid bruit. No lymphadenopathy or thyromegaly. LUNGS: Decreased breath sounds but clear to auscultation. Percussion note normal. Chest symmetrical. HEART: S1, S2, no S3. No murmurs. No cyanosis or clubbing. No ascites. Pulses: Dorsalis pedis and posterior tibial pulses +1 to +2 both sides. ABDOMEN: Soft. Nontender. Bowel sounds active. No CVA tenderness. No mass felt. EXTREMITIES: No edema. Full range of motion of all extremities, equal. NEUROLOGIC: No focal deficit. Cranial nerves II through XII are grossly intact. No headache, no double vision or headache. SKIN: Not dry. Intact. Turgor - normal. LYMPHATIC: No palpable lymph nodes/no lymphedema. MUSCULOSKELETAL: Normal joints with no swelling. Muscle tone is normal. LABS: Hgb 8.5, hct 28, creatinine 1.2, BUN 37 ASSESSMENT: 1. CHF seems to be under control 2. Dilated cardiomyopathy 3. Chronic lung disease under control 4. Diabetes seems to be acceptably controlled RECOMMENDATIONS: 1. Continue Aldactone 2. Steroids 3. NEBS 4. Bumex CONDITION: Stable. MTDD
[2018-03-31] MEDS: HUMALOG SUBCUT SCH ×3 (07:53→17:27)
[2018-03-31] MEDS: IMDUR PO SCH (08:58)
[2018-03-31] MEDS: RANEXA PO SCH ×2 (08:59→16:58)
[2018-03-31] MEDS: MICRO-K CAP PO SCH ×2 (08:59→16:58)
[2018-03-31] MEDS: CALCIUM 500 + VIT D 200 MG TABLET PO SCH (09:00)
[2018-03-31] MEDS: ASPIRIN EC PO SCH (09:00)
[2018-03-31] MEDS: PRAVACHOL PO SCH (09:01)
[2018-03-31] MEDS: MULTIVITAMIN TABLET PO SCH (09:01)
[2018-03-31] MEDS: DOXYCYCLINE HYCLATE PO SCH ×2 (09:02→21:37)
[2018-03-31] MEDS: VITAMIN D PO SCH ×2 (09:02→21:36)
[2018-03-31] MEDS: PLAVIX PO SCH (09:03)
[2018-03-31] MEDS: ALDACTONE PO SCH ×2 (09:03→21:36)
[2018-03-31] MEDS: LOVENOX SUBCUT SCH (09:05)
[2018-03-31] MEDS: TOPROL XL PO SCH (09:05)
[2018-03-31] MEDS: SOLU-CORTEF 100 MG IVP SCH (09:05)
[2018-03-31] MEDS: VITAMIN C PO SCH ×2 (09:06→21:38)
[2018-03-31] MEDS: HUMULIN N SUBCUT SCH ×2 (09:22→16:58)
[2018-03-31] MEDS: XANAX PO PRN (17:00)
[2018-03-31] MEDS: NORCO 5-325 PO PRN ×2 (17:00)
[2018-03-31] MEDS: NEURONTIN PO SCH ×2 (19:53→21:37)
[2018-03-31] MEDS: AVAPRO PO SCH (21:34)
[2018-04-01] MEDS: NORCO 5-325 PO PRN ×2 (02:06→18:44)
[2018-04-01] MEDS: BUMEX PO SCH (05:57)
[2018-04-01] MEDS: PROTONIX PO SCH ×2 (05:57→16:53)
[2018-04-01] MEDS: ASPIRIN EC PO SCH (09:49)
[2018-04-01] MEDS: PLAVIX PO SCH (09:50)
[2018-04-01] MEDS: MICRO-K CAP PO SCH ×2 (09:50→16:54)
[2018-04-01] MEDS: PRAVACHOL PO SCH (09:50)
[2018-04-01] MEDS: RANEXA PO SCH ×2 (09:50→16:54)
[2018-04-01] MEDS: VITAMIN D PO SCH ×2 (09:50→21:24)
[2018-04-01] MEDS: VITAMIN C PO SCH ×2 (09:51→21:24)
[2018-04-01] MEDS: XANAX PO PRN ×2 (09:51→18:45)
[2018-04-01] MEDS: CALCIUM 500 + VIT D 200 MG TABLET PO SCH (09:51)
[2018-04-01] MEDS: SOLU-CORTEF 100 MG IVP SCH ×2 (09:51→14:12)
[2018-04-01] MEDS: DOXYCYCLINE HYCLATE PO SCH ×2 (09:51→21:23)
[2018-04-01] MEDS: MULTIVITAMIN TABLET PO SCH (09:51)
[2018-04-01] MEDS: IMDUR PO SCH (09:52)
[2018-04-01] MEDS: TOPROL XL PO SCH (09:52)
[2018-04-01] MEDS: LOVENOX SUBCUT SCH (09:52)
[2018-04-01] MEDS: ALDACTONE PO SCH ×2 (09:53→21:24)
[2018-04-01] MEDS: HUMULIN N SUBCUT SCH ×2 (10:06→16:57)
[2018-04-01] MEDS: HUMALOG SUBCUT SCH ×3 (10:42→16:57)
--- NOTE | 2018-04-01 11:42 | OTPN ---
Subjective - Patient Information Date of Evaluation: 03/24/18 Date of Arrival on Unit: 03/16/18 Patient Reports/Comments: Pt is making progress toward her goals. Pt has increased to 89 in Fran Index score. Pt is CGA for toileting. Pt uses her RW for functional transfers. Pt is not always safe. Pt will take her 3Liters of O2 off her nose and walk with her RW. Pt was educated regarding her O2 and that this was not safe due to her O2 falling as she walks anyway. Objective Objective: Pt to increase in strength to increase her independence of self care. OT to continue to educate patient to increase her safety of functional transfers and ADLS. Short Term Goals - Goals GOAL 1: Pt to tolerate 20 minutes of dyn. std. balance ADLS. Goal to be met by: 04/08/18 GOAL 2: Pt to increase functional mobility to Mod-I for self care. Goal to be met by: 04/08/18 GOAL 3: Pt to increase independence of dressing to CGA. Goal to be met by: 04/08/18 Data Reviewer Goals GOAL 1: Pt to tolerate 20 minutes of dyn. std. balance ADLS. Goal to be met by: 04/12/18 GOAL 2: Pt to increase functional mobility to Mod-I for self care. Goal to be met by: 04/12/18 GOAL 3: Pt to increase Goal to be met by: 04/12/18 Assessment and Plan Assessment/Progress: Pt is improving in her functional mobility. Pt is CGA to Mod-I with functional transfers to the toilet. Pt is SOA with activity. Pt is not always safe with her functional mobility. Plan: Pt to continue with Occupational therapy to address independence of self care management, increase dynamic standing activity tolerance, increase patient' s safety in functional mobility.
[2018-04-01] MEDS: NEURONTIN PO SCH ×2 (18:44→21:23)
[2018-04-01] MEDS: AVAPRO PO SCH (21:22)
[2018-04-02] MEDS: BUMEX PO SCH (06:11)
[2018-04-02] MEDS: PROTONIX PO SCH ×2 (06:11→16:48)
[2018-04-02] MEDS: DOXYCYCLINE HYCLATE PO SCH ×2 (08:05→21:58)
[2018-04-02] MEDS: ALDACTONE PO SCH ×2 (08:06→21:58)
[2018-04-02] MEDS: MULTIVITAMIN TABLET PO SCH (08:06)
[2018-04-02] MEDS: TOPROL XL PO SCH (08:06)
[2018-04-02] MEDS: ASPIRIN EC PO SCH (08:06)
[2018-04-02] MEDS: PREDNISONE PO SCH (08:06)
[2018-04-02] MEDS: CALCIUM 500 + VIT D 200 MG TABLET PO SCH (08:06)
[2018-04-02] MEDS: IMDUR PO SCH (08:06)
[2018-04-02] MEDS: RANEXA PO SCH ×2 (08:07→16:48)
[2018-04-02] MEDS: VITAMIN D PO SCH ×2 (08:07→22:00)
[2018-04-02] MEDS: VITAMIN C PO SCH ×2 (08:07→22:00)
[2018-04-02] MEDS: PRAVACHOL PO SCH (08:07)
[2018-04-02] MEDS: MICRO-K CAP PO SCH ×2 (08:07→16:47)
[2018-04-02] MEDS: PLAVIX PO SCH (08:07)
[2018-04-02] MEDS: HUMALOG SUBCUT SCH ×3 (08:09→16:49)
[2018-04-02] MEDS: LOVENOX SUBCUT SCH (08:10)
[2018-04-02] MEDS: HUMULIN N SUBCUT SCH ×2 (08:17→16:53)
[2018-04-02] MEDS: NORCO 5-325 PO PRN (16:48)
[2018-04-02] MEDS: XANAX PO PRN ×2 (16:48→21:59)
[2018-04-02] MEDS: NEURONTIN PO SCH ×2 (19:30→22:00)
[2018-04-02] MEDS: AVAPRO PO SCH (21:59)
[2018-04-03] MEDS: NORCO 5-325 PO PRN ×3 (00:29→22:43)
[2018-04-03] MEDS: PROTONIX PO SCH ×2 (05:41→16:29)
[2018-04-03] MEDS: BUMEX PO SCH (05:41)
[2018-04-03] MEDS: CALCIUM 500 + VIT D 200 MG TABLET PO SCH (07:59)
[2018-04-03] MEDS: PRAVACHOL PO SCH (07:59)
[2018-04-03] MEDS: ASPIRIN EC PO SCH (07:59)
[2018-04-03] MEDS: VITAMIN D PO SCH ×2 (07:59→22:38)
[2018-04-03] MEDS: DOXYCYCLINE HYCLATE PO SCH ×2 (07:59→22:37)
[2018-04-03] MEDS: PREDNISONE PO SCH (07:59)
[2018-04-03] MEDS: MICRO-K CAP PO SCH ×2 (07:59→16:29)
[2018-04-03] MEDS: RANEXA PO SCH ×2 (08:00→16:29)
[2018-04-03] MEDS: ALDACTONE PO SCH ×2 (08:00→22:35)
[2018-04-03] MEDS: VITAMIN C PO SCH ×2 (08:01→22:39)
[2018-04-03] MEDS: PLAVIX PO SCH (08:01)
[2018-04-03] MEDS: LOVENOX SUBCUT SCH (08:01)
[2018-04-03] MEDS: MULTIVITAMIN TABLET PO SCH (08:01)
[2018-04-03] MEDS: IMDUR PO SCH (08:01)
[2018-04-03] MEDS: TOPROL XL PO SCH (08:01)
[2018-04-03] MEDS: HUMULIN N SUBCUT SCH ×2 (08:02→16:35)
[2018-04-03] MEDS: HUMALOG SUBCUT SCH ×3 (08:03→16:31)
[2018-04-03] MEDS: XANAX PO PRN ×2 (16:30→22:35)
[2018-04-03] MEDS: NEURONTIN PO SCH ×2 (18:24→22:37)
[2018-04-03] MEDS: AVAPRO PO SCH (22:36)
[2018-04-04] MEDS: PROTONIX PO SCH ×2 (06:04→17:30)
[2018-04-04] MEDS: BUMEX PO SCH (06:04)
[2018-04-04] MEDS: IMDUR PO SCH (08:42)
[2018-04-04] MEDS: MICRO-K CAP PO SCH ×2 (08:43→17:40)
[2018-04-04] MEDS: ASPIRIN EC PO SCH (08:43)
[2018-04-04] MEDS: MULTIVITAMIN TABLET PO SCH (08:43)
[2018-04-04] MEDS: VITAMIN C PO SCH ×2 (08:43→20:52)
[2018-04-04] MEDS: DOXYCYCLINE HYCLATE PO SCH ×2 (08:43→20:52)
[2018-04-04] MEDS: VITAMIN D PO SCH ×2 (08:43→20:53)
[2018-04-04] MEDS: PRAVACHOL PO SCH (08:43)
[2018-04-04] MEDS: TOPROL XL PO SCH (08:44)
[2018-04-04] MEDS: ALDACTONE PO SCH ×2 (08:44→20:52)
[2018-04-04] MEDS: CALCIUM 500 + VIT D 200 MG TABLET PO SCH (08:45)
[2018-04-04] MEDS: RANEXA PO SCH ×2 (08:45→17:40)
[2018-04-04] MEDS: PREDNISONE PO SCH (08:45)
[2018-04-04] MEDS: HUMULIN N SUBCUT SCH ×2 (08:46→17:41)
[2018-04-04] MEDS: LOVENOX SUBCUT SCH (08:46)
[2018-04-04] MEDS: PLAVIX PO SCH (08:46)
[2018-04-04] MEDS: HUMALOG SUBCUT SCH ×3 (08:53→17:43)
--- NOTE | 2018-04-04 10:15 | PN ---
DATE OF SERVICE: 03/28/18 CHIEF COMPLAINT: "I was too weak." BRIEF HISTORY OF PRESENT ILLNESS: Lisha was admitted to [facility] 03/11-03/17/18 after presenting after a fall. her primary discharge was hyponatremia, dizziness, weakness, gait declined, acute renal insufficiency and acute/chronic CHF with volume overload. She improved with therapy and treatment at [facility]; consultations with cardiology and Nephrology but was not yet strong enough to be able to discharged. She was transferred here; taken over by Dr. Gomez in absences till today. Apparently she was doing well when she did develop some increased shortness of breath and suggestion for volume overload; her improved with diuretics. Consultation was placed by Dr. Street and ejection fraction shows a cardiomyopathy with ejection fraction only 20%; that's below what is usual for her. Of course all of this has slowed her therapy. INTERVAL COURSE: She is eating and stool without diarrhea. She is drinking and voiding without dysuria. She is sleeping on and off; sometimes naps during the day without orthopnea. Her leg edema is present but improved. Actually her GFR has improved. Shortness is improved. OBJECTIVE: Medications reviewed. REVIEW OF SYSTEMS: GENERAL: Weak but improved CHEST: Occasional cough CARDIOVASCULAR: No chest pain, palpations, less ankle edema than usual. GI: No abdominal pain or diarrhea PSYCHIATRIC: Mildly depressed but nonsuicidal; mildly anxious PHYSICAL EXAMINATION: V/S: Temperature 97.6, pulse 67, respiratory rate 20, blood pressure 114/72 GENERAL: No obvious distress CHEST: Decreased with a soft wheeze. CARDIOVASCULAR: Regular distant without murmur; tract ankle edema GI: Obese, nontender PSYCHIATRIC: Oriented times three and pleasant. LABS/X-RAYS: WBC 8.4, hgb 8.3, potassium 3.4, GFR noted 51.Wound on right hand has grown staph aureus. ASSESSMENT: # Recurring hyponatremia- improving # Dizziness- related to all her medical problems-improved # Weakness-related to all medical problems-somewhat improved # Gait declined-acute on chronic-improving # Remote nasal fracture-Asymptomatic # Abrasions and wounds-improving # Right upper hand ulcer-under Wound Care and improving # Volume overload- Acute on chronic and recurring # Acute renal insufficiency on chronic kidney disease-variable # CHF-chronic diastolic with acute on and off components PLAN: # Medications reviewed-No changes # Labs- reviewed consider periodic monitoring of chemistries # Imaging reviewed- none needed # Consult-Same- Cardiology # Diet-encouraged and AFA-AHA # Fluids reviewed- none # Activity- encouraged with therapy # Code status- Full but could change # D/C planning- hoping for home # Case discussed with patient # Available to talk to nursing staff and family as needed MTDD
--- NOTE | 2018-04-04 10:36 | PN ---
DATE OF SERVICE: 03/29/18 CHIEF COMPLAINT: Weakness BRIEF HISTORY OF PRESENT ILLNESS: Lisha was admitted to [facility] 03/11-03/17/18 after presenting after a fall. her primary discharge was hyponatremia, dizziness, weakness, gait declined, acute renal insufficiency and acute/chronic CHF with volume overload. She improved with therapy and treatment at [facility]; consultations with cardiology and Nephrology but was not yet strong enough to be able to discharged. She was transferred here; taken over by Dr. Gomez in absences till today. Apparently she was doing well when she did develop some increased shortness of breath and suggestion for volume overload; her improved with diuretics. Consultation was placed by Dr. Street and ejection fraction shows a cardiomyopathy with ejection fraction only 20%; that's below what is usual for her. Of course all of this has slowed her therapy. INTERVAL CHANGES: Eating is still without diarrhea. Drinking and voiding without dysuria. A little more leg edema; GFR is improving. Gait is still poor; in brief walking with therapy. OBJECTIVE: Medications reviewed REVIEW OF SYSTEMS: CHEST: Less wheeze, no cough CARDIOVASCULAR: No chest pain, edema is noted. GI: No abdominal pain or diarrhea : No dysuria PSYCHIATRIC: Mildly depressed but non suicidal. Anxious to go home. PHYSICAL EXAMINATION: V/S: Temperature 97.6, pulse 78, respiratory 20, blood pressure 145/77 GENERAL: No obvious distress CHEST: Decreased with soft wheeze CARDIOVASCULAR: Regular distant without murmur; trace ankle edema GI: Obese, Nontender PSYCHIATRIC: Oriented times three and pleasant LABS/X-RAYS: None ASSESSMENT: # Recurring hyponatremia-improving # Dizziness-related to all her medical problems-improved # Weakness-related to all medical problems-somewhat improved # Gait declined-acute on chronic-improving # remote nasal fracture-Asymptomatic # Abrasions and wounds-improving # Right upper hand ulcer-under Wound Care and improving # Volume overload-acute on chronic and recurring # Acute renal insufficiency on chronic kidney disease-variable # CHF-chronic diastolic with acute on and off components PLAN: 1. Medications reviewed; Drop Ibuprofen from 300 to 75, Add Aldactone 12.5 once a day 2. H&H and BNP in the morning 3. Imaging- none 4. Consult-same with cardiology 5. Diet- same 6. Fluids- same 7. Activity-encouraged with therapy onboard 8. Code status-Full but could change 9. D/C planning- expecting home 10.Case discussed with son who was here; along with patient 11.Available to work with nursing staff and others as needed CHRISTA
--- NOTE | 2018-04-04 10:49 | PN ---
DATE OF SERVICE: 04/02/18 CHIEF COMPLAINT: Weakness BRIEF HISTORY OF PRESENT ILLNESS: Lisha was admitted to [facility] 03/11-03/17/18 after presenting after a fall. her primary discharge was hyponatremia, dizziness, weakness, gait declined, acute renal insufficiency and acute/chronic CHF with volume overload. She improved with therapy and treatment at [facility]; consultations with cardiology and Nephrology but was not yet strong enough to be able to discharged. She was transferred here; taken over by Dr. Gomez in absences till today. Apparently she was doing well when she did develop some increased shortness of breath and suggestion for volume overload; her improved with diuretics. Consultation was placed by Dr. Street and ejection fraction shows a cardiomyopathy with ejection fraction only 20%; that's below what is usual for her. Of course all of this has slowed her therapy. INTERVAL CHANGES: Continues to have less fatigue with no cough or shortness of breath. Bearable leg edema. She is now wearing her lower extremity stockings. The right extremity wound seems smaller; there is no pain. She can sleep without orthopnea. OBJECTIVE: Medications reviewed REVIEW OF SYSTEMS: GENERAL: Less fatigue. CHEST: No cough CARDIOVASCULAR: Denies any chest pain, variable leg edema GI: Denies any nausea, vomiting or diarrhea. : Denies dysuria PHYSICAL EXAMINATION: V/S: Temperature 98.6, pulse 72, respiratory rate 20, blood pressure 110/70. GENERAL: No obvious distress, pleasant INTEGUMENT: CHEST: Clear CARDIOVASCULAR: S1, S2 distant, I/ systolic murmur. 1 out of [address] way up legs with stockings. GI: Obese, nontender ASSESSMENT: # Recurring Hyponatremia-improving # Dizziness-related to all her medical problems-improving # Weakness-related to all medical problems-somewhat improved # Gait declined-acute on chronic improving # Remote nasal fracture-asymptomatic # Abrasions and wounds-improving # Right upper hand ulcer-under Wound Care and improving # Volume overload-acute on chronic and recurring # Acute renal insufficiency on chronic kidney disease-variable # CHF-chronic diastolic with acute on and off components #Over all continues to improve PLAN: 1. Medications reviewed- no change 2. Labs- reviewed; at least BNP for Wednesday 3. Imaging- None needed 4. Consult- Dr. Street 5. Diet- AHA/ADA 6. Fluids- none 7. Activity- encouraged along with PT 8. Code Status-full but could change, 9. D/C planning she expects home and we are thinking early next week. 10.Case discussed with patient, son, [id number] and daughter 11.Available to work with nursing staff as needed. CHRISTA
--- NOTE | 2018-04-04 11:38 | PN ---
DATE OF SERVICE: 03/30/18 CHIEF COMPLAINT: " I'm weak" BRIEF HISTORY OF PRESENT ILLNESS: Lisha was admitted to [facility] 03/11-03/17/18 after presenting after a fall. her primary discharge was hyponatremia, dizziness, weakness, gait declined, acute renal insufficiency and acute/chronic CHF with volume overload. She improved with therapy and treatment at [facility]; consultations with cardiology and Nephrology but was not yet strong enough to be able to discharged. She was transferred here; taken over by Dr. Gomez in absences till today. Apparently she was doing well when she did develop some increased shortness of breath and suggestion for volume overload; her improved with diuretics. Consultation was placed by Dr. Street and ejection fraction shows a cardiomyopathy with ejection fraction only 20%; that's below what is usual for her. Of course all of this has slowed her therapy. INTERVAL CHANGES: Eating and stooling without diarrhea or constipation. Drinking and voiding without dysuria or frequency. Standing a little more; a little longer walk. Sleep is better; no significant pain. Wound Care is pleased with her wound progression. REVIEW OF SYSTEMS: GENERAL: Feels less fatigue CHEST: Less cough CARDIOVASCULAR: No palpitation. Chest pain; variable leg edema based on time of day. GI: No vomiting or diarrhea or nausea PHYSICAL EXAMINATION: V/S: Temperature 97.8, pulse 69, respiratory rate 12 and blood pressure 100 GENERAL: No obvious distress CHEST: Decreased with a soft wheeze CARDIOVASCULAR: Regular distant without murmur; tract ankle edema GI: Obese, nontender PSYCHIATRIC: Oriented times three and pleasant LABS: Potassium 4.1, GFR 42 (compared to 51), hgb 8.5 ASSESSMENT: # Recurring Hyponatremia-improving # Dizziness-related to all her medical problems-improving # Weakness-related to all medical problems-somewhat improving # Gait declined-acute on chronic improving # Remote nasal fractures-asymptomatic # Abrasions and wounds-improving # Right upper hand ulcer-under Wound Care and improving # Volume overload-acute on chronic and recurring # Acute renal insufficiency on chronic kidney disease-variable # CHF-Chronic diastolic with acute on and off components PLAN: 1. Medications reviewed- the same 2. Labs- periodic monitoring but BNP particularly 3. Imaging- None needed 4. Consults- continue with Dr. Street 5. Diet- AHA/ADA and encourage 6. Fluids- none 7. Activity- encourage; as PT consult 8. Code status-full but could change 9. D/C- she expects home 10.Case discussed with patient and nursing staff CHRISTA
--- NOTE | 2018-04-04 12:59 | PN ---
DATE OF SERVICE: 03/31/18 CHIEF COMPLAINT: "I'm weak" BRIEF HISTORY OF PRESENT ILLNESS: Lisha was admitted to [facility] 03/11-03/17/18 after presenting after a fall. her primary discharge was hyponatremia, dizziness, weakness, gait declined, acute renal insufficiency and acute/chronic CHF with volume overload. She improved with therapy and treatment at [facility]; consultations with cardiology and Nephrology but was not yet strong enough to be able to discharged. She was transferred here; taken over by Dr. Gomez in absences till today. Apparently she was doing well when she did develop some increased shortness of breath and suggestion for volume overload; her improved with diuretics. Consultation was placed by Dr. Street and ejection fraction shows a cardiomyopathy with ejection fraction only 20%; that's below what is usual for her. Of course all of this has slowed her therapy. INTERVAL CHANGES: She feels like she is less short of breath and her edema is tolerable; she is eating, drinking, voiding, stooling without diarrhea, dysuria or frequency. She is having no significant pain. Her wound continues to improve and diminish in size. REVIEW OF SYSTEMS: GENERAL: Feels like she has improved; less fatigue CHEST: Less cough CARDIOVASCULAR: Variable leg edema GI: No nausea, vomiting or diarrhea. PHYSICAL EXAMINATION: V/S: Temperature 98, pulse 69, blood pressure 103/53 and respiratory rate 20. GENERAL: No obvious distress CHEST: S1, S2 with I/ murmur and one out of four pitting edema half way up both legs. CARDIOVASCULAR: GI: Non tender PSYCHIATRIC: Pleasant and purposeful conversation NEURO: Nonfocal use of extremities. LABS/X-RAYS: Sodium 141, potassium 4.2, GFR 44, BUN 41, creatinine 1.19 ASSESSMENT: # Recurring Hyponatremia-improving # Dizziness-related to all her medical problems- improving # Weakness- related to all her medical problems-somewhat improving # Gait declined-acute on chronic improving # Remote nasal fractures-asymptomatic # Abrasions and wounds-improving # Right upper hand ulcer-Wound Care and improving # Volume overload-acute on chronic and recurring # Acute renal insufficiency on chronic kidney disease-variable # CHF-Chronic diastolic with acute on and off components PLAN: 1. Medication reviewed- no change 2. Labs reviewed- no change 3. Imaging- none needed 4. Consult- Dr. Street 5. Diet- ADA/AHA 6. Fluid-none 7. Activity-encouraged with therapy 8. Code status - full but could change based on condition 9. D/C planning she expects home 10.Case reviewed with son who was here 11.Available to talk with nursing as needed CHRISTA
--- NOTE | 2018-04-04 13:24 | PN ---
DATE OF SERVICE: 04/01/18 CHIEF COMPLAINT: Weakness BRIEF HISTORY OF PRESENT ILLNESS: Lisha was admitted to [facility] 03/11-03/17/18 after presenting after a fall. her primary discharge was hyponatremia, dizziness, weakness, gait declined, acute renal insufficiency and acute/chronic CHF with volume overload. She improved with therapy and treatment at [facility]; consultations with cardiology and Nephrology but was not yet strong enough to be able to discharged. She was transferred here; taken over by Dr. Gomez in absences till today. Apparently she was doing well when she did develop some increased shortness of breath and suggestion for volume overload; her improved with diuretics. Consultation was placed by Dr. Street and ejection fraction shows a cardiomyopathy with ejection fraction only 20%; that's below what is usual for her. Of course all of this has slowed her therapy. INTERVAL CHANGES: Eating and drinking with stooling and voiding without constipation, diarrhea or dysuria. Walked further; variable leg swelling but it is tolerated. No orthopnea. IV is out; she is transitioned to oral. Medications reviewed REVIEW OF SYSTEMS: GENERAL: Less fatigue, sleeping OK. CHEST: No cough CARDIOVASCULAR: Denies any chest pain, variable leg edema GI: No vomiting or diarrhea PSYCHIATRIC: Less down; looking forward to going home. PHYSICAL EXAMINATION: V/S: Temperature 97.5, pulse 64, blood pressure 109/54 and respiratory rate 16. GENERAL: No obvious distress INTEGUMENT: Quarter size shallow wound to the dorsal surface of the right hand with good granulation tissue around the edge and clean base CHEST: Clear CARDIOVASCULAR: Distant S1 and S2. One out of four half way up leg pitting edema. GI: Obese, nontender LABS/X-RAYS: No labs today ASSESSMENT: # Recurring Hyponatremia-improving # Dizziness-related to all her medical problems- improving # Weakness- related to all her medical problems-somewhat improving # Gait declined-acute on chronic improving # Remote nasal fractures-asymptomatic # Abrasions and wounds-improving # Right upper hand ulcer-Wound Care and improving # Volume overload-acute on chronic and recurring # Acute renal insufficiency on chronic kidney disease-variable # CHF-Chronic diastolic with acute on and off components # Overall she is improving PLAN: 1. Medication reviewed- None changed 2. Labs- probably next Wednesday repeat 3. Imaging-none 4. Consults-Dr. Street 5. Diet- AHA/ADA 6. Fluids- None 7. Activity-encouraged with therapy 8. Code Status- full but could change 9. D/C planning- she expects early 10.Case discussed with the patient 11.Available to talk with nursing as needed. MTDD
[2018-04-04] MEDS: XANAX PO PRN ×2 (17:40→23:46)
[2018-04-04] MEDS: NORCO 5-325 PO PRN ×2 (17:40→23:46)
[2018-04-04] MEDS: NEURONTIN PO SCH ×2 (18:54→20:52)
[2018-04-04] MEDS: AVAPRO PO SCH (20:52)
[2018-04-05] MEDS: BUMEX PO SCH (05:54)
[2018-04-05] MEDS: PROTONIX PO SCH ×2 (05:54→18:33)
[2018-04-05] MEDS: HUMULIN N SUBCUT SCH ×2 (09:12→17:40)
[2018-04-05] MEDS: HUMALOG SUBCUT SCH ×3 (09:13→17:40)
[2018-04-05] MEDS: IMDUR PO SCH (09:13)
[2018-04-05] MEDS: ASPIRIN EC PO SCH (09:14)
[2018-04-05] MEDS: MULTIVITAMIN TABLET PO SCH (09:14)
[2018-04-05] MEDS: DOXYCYCLINE HYCLATE PO SCH ×2 (09:15→22:10)
[2018-04-05] MEDS: ALDACTONE PO SCH ×2 (09:15→22:07)
[2018-04-05] MEDS: PREDNISONE PO SCH (09:16)
[2018-04-05] MEDS: PLAVIX PO SCH (09:16)
[2018-04-05] MEDS: VITAMIN D PO SCH ×2 (09:16→22:08)
[2018-04-05] MEDS: TOPROL XL PO SCH (09:16)
[2018-04-05] MEDS: VITAMIN C PO SCH ×2 (09:17→22:08)
[2018-04-05] MEDS: MICRO-K CAP PO SCH ×2 (09:17→18:33)
[2018-04-05] MEDS: RANEXA PO SCH ×2 (09:17→18:32)
[2018-04-05] MEDS: CALCIUM 500 + VIT D 200 MG TABLET PO SCH (09:17)
[2018-04-05] MEDS: PRAVACHOL PO SCH (09:17)
[2018-04-05] MEDS: LOVENOX SUBCUT SCH (09:17)
[2018-04-05] MEDS: NORCO 5-325 PO PRN ×2 (17:40→23:58)
[2018-04-05] MEDS: XANAX PO PRN ×2 (17:40→23:59)
[2018-04-05] MEDS: NEURONTIN PO SCH ×2 (18:33→22:10)
[2018-04-05] MEDS: AVAPRO PO SCH (22:08)
[2018-04-06 05:20] VITALS: BP 112/57; TEMP 97.4
[2018-04-06] MEDS: PROTONIX PO SCH (06:28)
[2018-04-06] MEDS: BUMEX PO SCH (06:28)
--- NOTE | 2018-04-06 08:22 | PN ---
DATE OF SERVICE: 04/04/18 CHIEF COMPLAINT: "I was too weak to go home" BRIEF HISTORY OF PRESENT ILLNESS: Lisha was admitted to [facility] 03/11-03/17/18 after presenting after a fall. her primary discharge was hyponatremia, dizziness, weakness, gait declined, acute renal insufficiency and acute/chronic CHF with volume overload. She improved with therapy and treatment at [facility]; consultations with cardiology and Nephrology but was not yet strong enough to be able to discharged. She was transferred here; taken over by Dr. Gomez in absences till today. Apparently she was doing well when she did develop some increased shortness of breath and suggestion for volume overload; her improved with diuretics. Consultation was placed by Dr. Street and ejection fraction shows a cardiomyopathy with ejection fraction only 20%; that's below what is usual for her. Of course all of this has slowed her therapy. INTERVAL CHANGES: She had a good night with restful sleep; no orthopnea, chest pain or shortness of breath. She had a good Wednesday with some walking; tolerated leg edema wearing her hose. Eating and stooling without diarrhea. Drinking and voiding without dysuria. She has a Wound Care appointment; there is no significant pain of her right hand. Medications reviewed. REVIEW OF SYSTEMS: GENERAL: Less fatigued and walking better. CHEST: No cough CARDIOVASCULAR: No palpitations, leg edema she can tolerate GI: No tenderness, nausea or vomiting. PHYSICAL EXAMINATION: V/S: Temperature 97.5, pulse 56, respiratory rate 18, blood pressure 105/60 GENERAL:No obvious distress, pleasant CHEST: Clear CARDIOVASCULAR: S1, S2 distant, I/ systolic murmur. 1 out of [address] up legs with stockings. GI: Obese, nontender LABS/X-RAYS: Chemistry; sodium 139, potassium 4.6, chloride 104, bicarb 27, BUN 31, creatinine 1.2 with GFR 43 and stable. Blood sugars 108. ASSESSMENT: 0. Recurring Hyponatremia-improving 1. Dizziness-related to all her medical problems-improving 2. Weakness-related to all medical problems-somewhat improved 3. Gait declined-acute on chronic improving 4. Remote nasal fracture-asymptomatic 5. Abrasions and wounds-improving 6. Right upper hand ulcer-under Wound Care and improving 7. Volume overload-acute on chronic and recurring 8. Acute renal insufficiency on chronic kidney disease-variable 9. CHF-Chronic diastolic with acute on and off component 10.Over all continues to improve PLAN: 1. Medications reviewed-same 2. Labs reviewed-may not do anymore between now and followup in the office 3. Imaging reviewed-nothing planned 4. Consults- Dr. Street has been consulted 5. Diet- continue to stress the low salt 6. Fluids-60 ounces of fluid in 24 hours oral 7. Activity- Encourage to increase with therapy today and next couple days 8. Code status- Full but could change if condition changes 9. D/C planning she expects home and we are planning for perhaps middle of the week after she sees Wound Care 10.Case discussed with the patient 11.Available to talk with nursing staff and family as needed 12.Face to face for continuous home oxygen due to shortness of breath and dilated cardiomyopathy. MTDD
[2018-04-06] MEDS: DOXYCYCLINE HYCLATE PO SCH (09:07)
[2018-04-06] MEDS: CALCIUM 500 + VIT D 200 MG TABLET PO SCH (09:07)
[2018-04-06] MEDS: IMDUR PO SCH (09:07)
[2018-04-06] MEDS: TOPROL XL PO SCH (09:08)
[2018-04-06] MEDS: VITAMIN C PO SCH (09:08)
[2018-04-06] MEDS: PRAVACHOL PO SCH (09:08)
[2018-04-06] MEDS: MULTIVITAMIN TABLET PO SCH (09:08)
[2018-04-06] MEDS: ASPIRIN EC PO SCH (09:08)
[2018-04-06] MEDS: ALDACTONE PO SCH (09:08)
[2018-04-06] MEDS: VITAMIN D PO SCH (09:08)
[2018-04-06] MEDS: MICRO-K CAP PO SCH (09:08)
[2018-04-06] MEDS: PREDNISONE PO SCH (09:09)
[2018-04-06] MEDS: RANEXA PO SCH (09:09)
[2018-04-06] MEDS: PLAVIX PO SCH (09:09)
[2018-04-06] MEDS: LOVENOX SUBCUT SCH (09:10)
[2018-04-06] MEDS: HUMALOG SUBCUT SCH ×2 (09:10→11:49)
[2018-04-06] MEDS: HUMULIN N SUBCUT SCH (09:11)
== END 2018-04-06 16:15 | disposition home or self-care (01) | DRG 149 ==
LOC: MEDSURG A 17:56
PROVIDERS: ADMIT Family Medicine; ATTEND Family Medicine
DX: R42 Dizziness and giddiness (principal); R53.1 Weakness; R26.9 Unspecified abnormalities of gait and mobility; R60.0 Localized edema; R06.02 Shortness of breath; I50.9 Heart failure, unspecified; S50.812D Abrasion of left forearm, subsequent encounter; S50.811D Abrasion of right forearm, subsequent encounter; S00.31XD Abrasion of nose, subsequent encounter; S02.2XXD Fracture of nasal bones, subsequent encounter for fracture with routine healing; L98.499 Non-pressure chronic ulcer of skin of other sites with unspecified severity; E87.70 Fluid overload, unspecified; N28.9 Disorder of kidney and ureter, unspecified
CPT/HCPCS: 36415; 80048; 80053; 82803; 82962; 85014; 85018; 85025; 87070; 87081; 87186; 93005; 93010; 94761; 97802

== ENCOUNTER 2018-03-23 09:14 | Outpatient (CLI) | payer OTHER | END 2018-03-23 09:15 | disposition home or self-care (01) | LOC: WOUND 09:14 | PROVIDERS: ATTEND Nurse Practitioner Family | DX: S60.511S Abrasion of right hand, sequela (principal); I10 Essential (primary) hypertension; N18.9 Chronic kidney disease, unspecified; E11.9 Type 2 diabetes mellitus without complications; E78.5 Hyperlipidemia, unspecified ==

== ENCOUNTER 2018-03-30 09:06 | Outpatient (CLI) | payer OTHER | END 2018-03-30 09:07 | disposition home or self-care (01) | LOC: WOUND 09:06 | PROVIDERS: ATTEND Nurse Practitioner Family | DX: S60.511A Abrasion of right hand, initial encounter (principal); I10 Essential (primary) hypertension; N18.9 Chronic kidney disease, unspecified; E11.9 Type 2 diabetes mellitus without complications; E78.5 Hyperlipidemia, unspecified | CPT/HCPCS: 11042 ==

== ENCOUNTER 2018-04-06 07:13 | Outpatient (CLI) | END 2018-04-06 07:14 | disposition home or self-care (01) | LOC: WOUND 07:13 | PROVIDERS: ATTEND Nurse Practitioner Family | DX: S60.511A Abrasion of right hand, initial encounter (principal); I10 Essential (primary) hypertension; N18.9 Chronic kidney disease, unspecified; E11.9 Type 2 diabetes mellitus without complications; E78.5 Hyperlipidemia, unspecified ==

== ENCOUNTER 2018-04-13 10:28 | Outpatient (CLI) | END 2018-04-13 10:29 | disposition home or self-care (01) | LOC: WOUND 10:28 | PROVIDERS: ATTEND Nurse Practitioner Family | DX: S60.511A Abrasion of right hand, initial encounter (principal); I10 Essential (primary) hypertension; N18.9 Chronic kidney disease, unspecified; E11.9 Type 2 diabetes mellitus without complications; E78.5 Hyperlipidemia, unspecified ==

== ENCOUNTER 2018-04-19 12:39 | Outpatient (CLI) | payer OTHER | END 2018-04-19 12:40 | disposition home or self-care (01) | LOC: NONPT 12:39 | PROVIDERS: ATTEND Family Medicine | DX: S60.511A Abrasion of right hand, initial encounter (principal); R29.6 Repeated falls; N18.3 Chronic kidney disease, stage 3 (moderate); E11.9 Type 2 diabetes mellitus without complications; I50.9 Heart failure, unspecified | CPT/HCPCS: 80048 ==

== ENCOUNTER 2018-05-24 19:04 | Outpatient (CLI) | payer OTHER | END 2018-05-24 19:05 | disposition home or self-care (01) | LOC: LAB 19:04 | PROVIDERS: ATTEND Family Medicine | DX: N18.9 Chronic kidney disease, unspecified (principal); I50.9 Heart failure, unspecified | CPT/HCPCS: 36415; 84132 ==

== ENCOUNTER 2018-06-01 10:21 | Outpatient (CLI) | END 2018-06-01 10:22 | LOC: AMBL 10:21 | PROVIDERS: ATTEND Internal Medicine | DX: R47.81 Slurred speech (principal); R53.1 Weakness; R41.82 Altered mental status, unspecified; E11.9 Type 2 diabetes mellitus without complications; R13.10 Dysphagia, unspecified; R40.2421 Glasgow coma scale score 9-12, in the field [EMT or ambulance] ==

== ENCOUNTER 2018-06-25 16:58 | Outpatient (CLI) | payer OTHER | END 2018-06-25 17:19 | disposition short-term general hospital (02) | LOC: AMBL 16:58 | PROVIDERS: ATTEND Internal Medicine Geriatric Medicine | DX: R19.7 Diarrhea, unspecified (principal) ==

== ENCOUNTER 2018-09-08 08:19 | Outpatient (CLI) | payer OTHER ==
[2018-08-01 14:42] VITALS: BMI 34.5
== END 2018-09-08 08:39 | disposition short-term general hospital (02) ==
LOC: AMBL 08:19
PROVIDERS: ATTEND Emergency Medicine
DX: R31.9 Hematuria, unspecified (principal); R53.1 Weakness; W19.XXXA Unspecified fall, initial encounter

== ENCOUNTER 2018-10-11 13:23 | Outpatient (CLI) ==
[2018-08-01 14:42] VITALS: BMI 34.5
== END 2018-10-11 13:24 | disposition home or self-care (01) ==
LOC: NONPT 13:23
PROVIDERS: ATTEND Family Medicine
DX: N19 Unspecified kidney failure (principal)
CPT/HCPCS: 81001; 82570; 84156

== ENCOUNTER 2018-11-21 09:24 | Outpatient (CLI) | payer OTHER ==
[2018-08-01 14:42] VITALS: BMI 34.5
== END 2018-11-21 09:25 | disposition home or self-care (01) ==
LOC: NONPT 09:24
PROVIDERS: ATTEND Family Medicine
DX: N18.3 Chronic kidney disease, stage 3 (moderate) (principal); R82.90 Unspecified abnormal findings in urine
CPT/HCPCS: 81001; 87086; 87186

== ENCOUNTER 2018-12-09 09:49 | Outpatient (CLI) ==
[2018-08-01 14:42] VITALS: BMI 34.5
== END 2018-12-09 09:50 | disposition home or self-care (01) ==
LOC: NONPT 09:49
PROVIDERS: ATTEND Family Medicine
DX: N18.3 Chronic kidney disease, stage 3 (moderate) (principal); R82.90 Unspecified abnormal findings in urine
CPT/HCPCS: 81001; 87086

== ENCOUNTER 2018-12-21 14:08 | Outpatient (CLI) ==
[2018-08-01 14:42] VITALS: BMI 34.5
--- NOTE | 2018-12-21 15:52 | CT ---
EXAM: CT of the lumbar spine without contrast History: Increased back pain. Comparison: CT thoracic spine 12/21/2018 Technique: Multiplanar CT images through the thoracic spine were obtained without the administration of IV contrast Findings: Atherosclerotic vascular calcifications. 3.8 cm infrarenal abdominal aortic aneurysm. Severe burst fracture at L3 which is causing severe central canal stenosis. No acute subluxation. T here is also a fracture of the right pedicle at L3. Osteopenia. Severe disc space narrowing at L5-S1 and moderate to severe disc space narrowing at L2-L3. Moderate to severe central canal stenosis at L4-L5 secondary to disc protrusion. Impression: 1. Burst fracture at L3 with retropulsion causing severe central canal stenosis. 2. There is also a fracture of the right pedicle at L3. 3. Moderate to severe central canal stenosis at L4-L5. 4. 3.8 cm infrarenal abdominal aortic aneurysm.
--- NOTE | 2018-12-21 15:55 | CT ---
EXAM: CT of the thoracic spine without contrast History: Increased thoracic back pain. Technique: Multiplanar CT images through the thoracic spine were obtained without the administration of IV contrast Findings: Mild emphysema seen within the visualized lungs. Atherosclerotic vascular calcifications. Coronary calcifications. Heart is enlarged. Osteopenia. No acute fracture or subluxation of the thoracic spine. Mild to moderate multilevel dis c space narrowing with endplate sclerosis, vacuum disc phenomenon and a few small osteophytes. Bony spinal canal is not significantly compromised. Impression: 1. No acute osseous abnormality of the thoracic spine. 2. Mild to moderate degenerative disc disease. 3. Cardiomegaly and coronary artery disease
== END 2018-12-21 14:09 | disposition home or self-care (01) ==
LOC: RAD 14:08
PROVIDERS: ATTEND Family Medicine
DX: M54.9 Dorsalgia, unspecified (principal)